=== PATIENT | female | born 1960 | race Caucasian/White ===

== ENCOUNTER 2018-04-19 06:33 | Day surgery (SDC) | payer OTHER, SELFPAY ==
[2018-04-01 14:18] VITALS: BMI 23.6
[2018-04-19] VITALS (14 sets, daily range): BP systolic 102–137; BP diastolic 62–86; PULSE 61–73; RESP 13–16; TEMP 36.1–37.1; O2SAT 94–99; BMI 23.6
--- NOTE | 2018-04-19 | PATH_ITS ---
[facility] Accession Number: [id number] . 01 Material submitted: . UTERUS, CERVIX AND BILATERAL FALLOPIAN TUBES . 02 Diagnosis: Uterus, Cervix, and Bilateral Fallopian Tubes, Laparoscopic-Assisted Vaginal Hysterectomy/Bilateral Salpingectomy/Anterior and Posterior Repair for Symptomatic Pelvic Relaxation (Weight 49 grams): Cervix with parakeratosis and with patchy cytologic atypia, inconclusive for involvement by mild dysplasia. Negative for high grade dysplasia. Endocervix with no significant histomorphologic abnormality. Endometrium with weakly proliferative and basalis endometrium; negative for glandular hyperplasia, cytologic atypia and malignancy. Myometrium with involvement by adenomyosis. Serosa with no significant histomorphologic abnormality. Right and left fallopian tubes with no significant histomorphologic abnormality. MRV/04/24/2018 . 02 Electronically signed: . Larissa Martinez MD, Pathologist NPI- [id number] . 01 Gross description: . Received in formalin, labeled uterus, cervix, bilateral fallopian tubes, is a uterus (49 grams, 2.7 cm AP, 6.6 cm SI, 3.8 cm ML) with attached fimbriated fallopian tubes (right: length-3.8 cm, diameter-0.4 cm; left: length-6.5 cm, diameter-0.3 cm). The ovaries are absent. The cervix (2.2 cm AP, 2.7 cm ML) has a vaginal cuff (up to 1.2 cm in depth), transverse os and patent endocervical canal. The endometrium (average thickness-0.1 cm) is curry smooth and flat. The myometrium (thickness-1.4 cm) is curry-white with a focally whorled appearance is otherwise unremarkable. The fallopian tubes have dull hong-curry smooth serosa and curry unremarkable lumens. Section code: (A1) anterior cervix; (A2) posterior cervix; (A3, A4) anterior endomyometrium; (A5, A6) posterior endomyometrium; (A7) right fallopian tube, shipping services sales representative serial sections; (A8) right fimbria, bivalved, entirely submitted; (A9) left fallopian tube, shipping services sales representative serial sections; (A10) left fimbria, bivalved, entirely submitted. ([id number]) /MRV . 02 Pathologist provided ICD-10: N81.4 . 02 CPT . 120087 Specimen Comment: A duplicate report has been generated due to demographic updates. Performed at: 01 [facility] [address] [place] [address], [place], [place] [id number] MD Godfrey Serrato MD Phone: [phone] Performed at: 02 [facility] [id number] [place] [id number] MD Ryley Castillo MD Phone: [phone]
[2018-04-19] MEDS: LACTATED RINGERS 1,000 ML 42 ML IV ×2 (07:20→10:14)
--- NOTE | 2018-04-19 07:46 | PM.PREOP ---
Pre-operative Note Interval Note Pre-op Check: Yes History & Physical Reviewed by Physician Changes: No
[2018-04-19] MEDS: CEFAZOLIN 2 GM/100 ML FROZ.PIGGY IV (08:01)
--- NOTE | 2018-04-19 08:38 | SUR.OPER ---
Lithotomy on padded OR bed. [place] Pad Positioner under torso. Head on pillow, arms padded and tucked at sides. Legs secured in padded yellow fins stirrups.
[2018-04-19] MEDS: BUPIVACAINE 0.5% W/ EPI (PF) VIAL 30 ML INJ (08:51)
[2018-04-19] MEDS: BUPIVACAINE 0.25% W/ EPI VIAL 50 ML INJ (09:18)
[2018-04-19] MEDS: OXYCODONE/ACETAMINOPHEN 5/325 TABLET 2 TAB PO ×3 (11:43→21:06)
[2018-04-19] MEDS: KETOROLAC 30 MG/ML VIAL IV (12:13)
[2018-04-19] MEDS: LACTATED RINGERS 1,000 ML 100 ML IV ×2 (12:13→22:26)
[2018-04-19] MEDS: DOCUSATE 250 MG CAPSULE PO (21:06)
[2018-04-20 00:05] VITALS: BP 120/68; PULSE 78; RESP 19; TEMP 36.8; O2SAT 98
[2018-04-20] MEDS: OXYCODONE/ACETAMINOPHEN 5/325 TABLET 2 TAB PO ×3 (02:00→10:58)
[2018-04-20 05:24] VITALS: BP 134/83; PULSE 64; RESP 18; TEMP 36.6; O2SAT 100
[2018-04-20] MEDS: KETOROLAC 30 MG/ML VIAL IV ×2 (05:33→11:22)
[2018-04-20 05:51] LABS: Add Manual Diff / Slide Review NO; Basophils Percent Auto 0.1 % (0-2); Eosinophils Percent Auto 0.1 % (2-4); Hematocrit 36.8 % (36-46); Hemoglobin 12.8 g/dL (12.0-16.0); Lymphocytes Percent Auto 16.2 % (25-40); Mean Corpuscular HGB Conc 34.8 % (30-36); Mean Corpuscular Volume 94.9 fL (80-100); Monocytes Percent Auto 5.5 % (3-14); Neutrophils Absolute Auto 7300 /uL (3000-5900); Neutrophils Percent Auto 78.1 % (50-75); Platelet Count 154 X10^3/uL (150-400); Red Blood Cell Count 3.88 X10^6/uL (4.0-5.2); Red Cell Distribution Width 12.4 % (11.6-14.8); White Blood Cell Count 9.3 X10^3/uL (4.5-11.0)
[2018-04-20 07:50] VITALS: BP 120/63; PULSE 64; RESP 18; TEMP 36.5; O2SAT 100
[2018-04-20] MEDS: DOCUSATE 250 MG CAPSULE PO (08:46)
--- NOTE | 2018-04-20 11:45 | PC.NURSE ---
Discharge Note: Patient discharged this shift at 1135 via private vehicle. Patient able to void with no post-void residual. IV discontinued, patient tolerated well. Patient refused wheelchair for discharge. This RN walked with patient to awaiting car. No questions at time of discharge. Discharge prescription and instructions with patient at time of discharge.
--- NOTE | 2018-04-20 16:24 | CM.IDA ---
No barriers to safe DC home noted. JW
--- NOTE | 2018-06-07 12:20 | P.OP_ITS ---
Operative Date/Time/Diagnoses Date of procedure: 04/19/18 Time of procedure: 10:45 Pre-op diagnosis: Symptomatic uterine prolapse, cystocele, and rectocele Post-op diagnosis: same Procedure: Procedures Operation Date: 04/19/18 07:45 Actual Procedures Side Surgeon p Laparoscopic Assisted Vag Hysterectomy Not Applicable MD ami De Santiago Laparoscopic Salpingectomy Bilateral MD ami De Santiago Anterior/Posterior Repair Not Applicable Edda Carlton MD Indications: Symptomatic uterine prolapse, cystocele, and rectocele Surgeon: Edda Carlton Home Health Clinician: Ziggy Galvez Anesthesia Type: General Operative Notes Findings: Third-degree uterine prolapse Third-degree cystocele Third-degree rectocele Closure Type: primary Specimen(s): left tube & ovary, right tube & ovary and uterus Applied: catheter Estimated blood loss (mL): 75 Blood products transfused: none Procedure in detail: The patient was taken to the operating room where she was placed in the dorsal supine position. After adequate general endotracheal anesthesia was achieved, she was placed in the dorsal lithotomy position, and prepped and draped in the usual sterile fashion. A time-out was performed. A bivalve speculum was placed into the vagina, and a single-tooth tenaculum was placed on the anterior lip of the cervix. The cervical os was sequentially dilated until the ZUMI uterine manipulator could pass easily into the endometrial cavity. The single-tooth tenaculum was removed from the anterior lip of the cervix, and the bivalve speculum was removed from the vagina. Attention was then turned to the abdomen where 6 mL of half percent Marcaine with epinephrine were injected in the umbilical fold. A 5 mm incision was made. The varies needle was placed into the peritoneal cavity, and its placement confirmed by aspiration and drop test. The abdominal cavity was insufflated with 3.3 L of CO2. The varies needle was removed, and a 5 mm trocar was placed without difficulty. Initial inspection of the pelvis revealed the findings noted above. 2 other incisions were made midway between the pubic symphysis and umbilicus 4 cm lateral to the midline. These were 5 mm incisions. Two 5 mm trochars were placed under direct visualization. The right tube and ovary were grasped with an atraumatic grasper. The infundibulopelvic ligament on the right side was cauterized and cut with plasma kinetic. The round ligament and broad ligament were cauterized and cut. This was continued to the level of the uterine arteries. This was repeated on the patient's left side. The instruments were removed from the abdomen. Attention was then turned to the vagina where the ZUMI uterine manipulator was removed from the uterus. The cervix was grasped with a 4 tooth tenaculum. 10 mL of quarter percent Marcaine with epinephrine were injected circumferentially around the cervix. The cervix was circumscribed. The bladder and rectum were dissected off the lower uterine segment and cervix with an open moistened Ray- Victoriano. The peritoneum was entered sharply with the Metzenbaum scissors anteriorly and a Kaye placed. The peritoneum was entered posteriorly with the Metzenbaum scissors and the long weighted speculum was placed into the posterior cul-de-sac. The uterosacral cardinal ligament complexes were clamped , transected, and suture ligated with 0 Vicryl. These were attached to hemostat. The uterine arteries were clamped, transected, and suture ligated with 0 Vicryl. The uterus was handed off for specimen with the tubes and ovaries. The peritoneum was closed with a pursestring suture with 2-0 Vicryl. The vaginal cuff was closed with 0 Vicryl with a series of simple interrupted sutures. The tagged sutures were cut. Two Allis clamps were placed at the apex of the cystocele. 6 mL of half percent Marcaine with epinephrine were injected and an incision was made with a #10 blade between the 2 Allis clamps. Wide Allis clamps were placed on the midline of the cystocele approximately 5. The mucosa was undermined using the Metzenbaum scissors and the mucosa incised in the midline moving the wide Allis clamps to the edges of the mucosa. The mucosa was dissected off the underlying fascia using an open moistened Ray-Victoriano and a #10 blade. The fascia was reapproximated with 0 Vicryl with a series of horizontal mattress sutures. The excess vaginal mucosa was excised. The mucosa was closed using simple interrupted sutures with 2-0 Vicryl including the underlying fascia to close the space. The weighted speculum was removed from the vagina. Allis clamps were placed at the mucocutaneous junction at the introitus. 6 mL of half percent Marcaine with epinephrine were injected. An incision was made with a #10 blade between the 2 Allis clamps, and a triangular piece of skin and underlying subcutaneous tissue was removed. Allis clamps were placed in the midline of the rectocele. 10 mL of half percent Marcaine with epinephrine were injected submucosally. The mucosa was undermined using the Metzenbaum scissors and the mucosa incised in the midline, moving the wide Allis clamps to the mucosal edges. The underlying fascia was dissected off of th mucosa using an open moistened Ray-Victoriano and a #10 blade. The fascia was reapproximated using 0 Vicryl with a series of horizontal mattress sutures. The excess vaginal mucosa was excised. The mucosa was closed using a series of simple interrupted sutures with 2-0 Vicryl including the underlying fascia to close the space. On the perineum 0 Vicryl was used to reapproximate the levator muscle. The subcutaneous layer was closed with 2-0 Vicryl. The skin was closed with 3-0 chromic in a subcuticular fashion. Hemostasis was achieved. A Betadine moistened vaginal pack was placed into the vagina. A rectal exam was done and there were no sutures palpable in the rectum. The urine was clear. Sponge, lap, and instrument counts were correct x-2. The patient tolerated the procedure well, was taken to PACU in stable condition. Complications: none Post-operative Condition: stable Disposition: PACU Plan for aftercare: To acute care after recovery
--- NOTE | 2018-07-19 09:32 | PM.DS.1 ---
History of Present Illness Date Patient Seen: 04/20/18 Time Patient Seen: 09:30 Chief complaint: *OPB* [facility] [id number] Narrative: Patient is a 58-year-old postop day # 1 status post LAVH an anterior and posterior repair. She is tolerating a diet. Pain is well controlled. She has been able to void without urinary retention. Discharge Providers Discharge provider: Edda Carlton MD Discharge Date: 04/20/18 Summary Discharge Diagnosis: Symptomatic cystocele and rectocele symptomatic uterine prolapse Status post LAVH/BSO/anterior and posterior repair Hospital Course: Patient was admitted on 04/19/2018 for a scheduled laparoscopic-assisted vaginal hysterectomy with anterior and posterior repair She underwent this procedure without complication. Her catheter and vaginal packing were removed on 04/20/2018. She was able to void without urinary retention. Her pain was well controlled. She ambulated. She was tolerating a diet. Status at Discharge Functional status at discharge: independent ambulation Overall status at discharge: patient is progressing back to baseline Time Spent with Patient Less than 30 minutes Exam Vital Signs (past 8 hours): Oxygen Delivery Method Room Air Oxygen Flow Rate 0 Narrative Exam Narrative: Generally: A well-developed, well-nourished female, no acute distress Lungs: Clear to auscultation bilaterally Cardiovascular: Regular rate and rhythm Abdomen: Soft and flat, good bowel sounds Incisions: Clean dry and intact with op sites Perineum: Dry Extremities: Negative Homans, no edema Objective Labs Result Diagrams: 04/20/18 05:16 Discharge Plan Discharge Plan Patient Disposition: Home Discharge comment: Call with fever, chills, redness or drainage around incisions or bleeding vaginally more than spotty to light. Discharge Med Rec/Prescriptions Prescriptions: No Action hydrocodone-acetaminophen [Vicodin] 5-300 mg tablet 1 tab PO Q4-6H PRN (Reason: pain) Qty: 20 RF: 0 CMP Estrogen cream 0.2? cream 0.5 gram VAG 2XW Qty: 30 RF: 3 Follow up/Referrals: Edda Carlton MD [Physician] - 2 Weeks Discharge Orders: Discharge (Order); Ordered 04/20/18 Ordered By: Edda Carlton Provider Discharge Instructions Diet: Diet as Tolerated Activity: No heavy lifting No intercourse Skin/Wound/Dressing Care Report to your healthcare provider any signs of infection, such as:: chills, fever, increased pain and unusual drainage Dressing: Remove outer plastic dressings and guaze after first shower Visit Report/Discharge Packet Stand Alone Forms: Surgery Discharge Discharge Data Attending Provider: Edda Carlton Discharges patient from system. Discharge Date/Time: 04/20/18 11:35 Quality VTE Deep Vein Thrombosis/Pulmonary Embolism Present on Admission: No
--- NOTE | 2018-07-19 09:36 | P.DS_ITS ---
History of Present Illness Date Patient Seen: 04/20/18 Time Patient Seen: 09:30 Chief complaint: *OPB* [facility] [id number] Narrative: Patient is a 58-year-old postop day # 1 status post LAVH an anterior and posterior repair. She is tolerating a diet. Pain is well controlled. She has been able to void without urinary retention. Discharge Providers Discharge provider: Edda Carlton MD Discharge Date: 04/20/18 Summary Discharge Diagnosis: Symptomatic cystocele and rectocele symptomatic uterine prolapse Status post LAVH/BSO/anterior and posterior repair Hospital Course: Patient was admitted on 04/19/2018 for a scheduled laparoscopic -assisted vaginal hysterectomy with anterior and posterior repair She underwent this procedure without complication. Her catheter and vaginal packing were removed on 04/20/2018. She was able to void without urinary retention. Her pain was well controlled. She ambulated. She was tolerating a diet. Status at Discharge Functional status at discharge: independent ambulation Overall status at discharge: patient is progressing back to baseline Time Spent with Patient Less than 30 minutes Exam Vital Signs (past 8 hours): Oxygen Delivery Method Room Air Oxygen Flow Rate 0 Narrative Exam Narrative: Generally: A well-developed, well-nourished female, no acute distress Lungs: Clear to auscultation bilaterally Cardiovascular: Regular rate and rhythm Abdomen: Soft and flat, good bowel sounds Incisions: Clean dry and intact with op sites Perineum: Dry Extremities: Negative Homans, no edema Objective Labs Result Diagrams: 04/20/18 05:16 Discharge Plan Discharge Plan Patient Disposition: Home Discharge comment: Call with fever, chills, redness or drainage around incisions or bleeding vaginally more than spotty to light. Discharge Med Rec/Prescriptions Prescriptions: No Action hydrocodone-acetaminophen [Vicodin] 5-300 mg tablet 1 tab PO Q4-6H PRN (Reason: pain) Qty: 20 RF: 0 CMP Estrogen cream 0.2? cream 0.5 gram VAG 2XW Qty: 30 RF: 3 Follow up/Referrals: Edda Carlton MD [Physician] - 2 Weeks Discharge Orders: Discharge (Order); Ordered 04/20/18 Ordered By: Edda Carlton Provider Discharge Instructions Diet: Diet as Tolerated Activity: No heavy lifting No intercourse Skin/Wound/Dressing Care Report to your healthcare provider any signs of infection, such as:: chills, fever, increased pain and unusual drainage Dressing: Remove outer plastic dressings and guaze after first shower Visit Report/Discharge Packet Stand Alone Forms: Surgery Discharge Discharge Data Attending Provider: Edda Carlton Discharges patient from system. Discharge Date/Time: 04/20/18 11:35 Quality VTE Deep Vein Thrombosis/Pulmonary Embolism Present on Admission: No
== END 2018-04-20 11:35 | disposition home or self-care (01) ==
LOC: OR 06:35 → AC 06:48
PROVIDERS: Visit Provider Obstetrics & Gynecology
PROC: 0UT9FZZ Resection of Uterus, Via Natural or Artificial Opening With Percutaneous Endoscopic Assistance (ICD-10-PCS; CPT 58552; principal; 2018-04-19 07:45)
PROC: 0UT24ZZ Resection of Bilateral Ovaries, Percutaneous Endoscopic Approach (ICD-10-PCS; CPT 58661; 2018-04-19 07:45)
PROC: (CPT 58552; 2018-04-19 07:45)
DX: N81.3 Complete uterovaginal prolapse (principal); N81.6 Rectocele
CPT/HCPCS: 58552; 57260; 36415; 85025; J0690; J1100; J1885; J2405; J2704; J3010